=== PATIENT | male | born 1975 | race Caucasian/White ===

== ENCOUNTER 2019-07-14 16:48 | Emergency (ER) | payer OTHER ==
[2019-07-14] MEDS ORDERED: KETOROLAC TROMETHAMINE INJ 30 MG/ML VIAL IV ONE (17:43)
--- NOTE | 2019-07-14 18:11 | RAD ---
EXAM DESCRIPTION: XR Chest, 2 Views CLINICAL HISTORY: 44 years Male CP TECHNIQUE: Two views of the chest. COMPARISON: No prior exams provided for comparison. FINDINGS: The lungs are clear without focal consolidation, effusion, or pneumothorax. The cardiomediastinal silhouette and central pulmonary vasculature are normal. No acute osseous abnormalities. IMPRESSION: No acute cardiopulmonary abnormalities. Electronically signed by: Dot Arcos MD 07/14/2019 6:09 PM MANAGER SECONDARY
--- NOTE | 2019-07-14 18:13 | ED.PDOC ---
History of Present Illness - General Chief Complaint: General Stated Complaint: bilateral rib pain Time Seen by Provider: 07/14/19 17:40 Additional Information: Patient is a 44-year-old male with chief complaint of lower anterior chest wall tightness for the past 4-5 days. Patient indicates he feels like he has been punched in the chest. He rates his pain as moderate in intensity and is constant, worse with motion and with deep inspiration. Patient indicates he has had similar symptoms in the past with pneumonia. patient with an occasional dry cough. He denies history of blood clots. Patient denies any history of coronary artery disease or intrinsic lung disease. Patient indicates he works 60 hours a week and is under considerable stress and believes this is contributing to his symptoms as well. Patient is otherwise asymptomatic. - History of Present Illness Allergies/Adverse Reactions: Allergies NO KNOWN ALLERGY Allergy (Verified 07/14/19 17:45) Home Medications: Ambulatory Orders Ibuprofen [Motrin] 600 mg PO Q6H PRN #20 tab 07/14/19 Review of Systems - Review of Systems Constitutional: Denies: chills, fever EENTM: States: no symptoms reported Respiratory: States: cough, short of breath - slight. Denies: stridor, wheezing Cardiology: Denies: palpitations, syncope Gastrointestinal/Abdominal: States: no symptoms reported. Denies: abdominal pain, nausea, vomiting Genitourinary: States: no symptoms reported. Denies: dysuria Musculoskeletal: Denies: muscle pain Skin: Denies: rash Neurological: States: no symptoms reported All other Systems: Reviewed and Negative Past Medical History (General) - Patient Medical History Hx Stroke: No Hx Asthma: Yes Hx Congestive Heart Failure: No Hx Hypertension: Yes Hx Diabetes: No - Vaccination History Hx Influenza Vaccination: No Hx Pneumococcal Vaccination: No - Social History Hx Tobacco Use: No - E-cigs Hx Depression: Yes Family Medical History - Family History Father Family History: Unknown Living Status: Unknown Physical Exam - Physical Exam General Appearance: Alert, Comfortable, No apparent distress, Obese Ears, Nose, Throat: normal ENT inspection, normal pharynx Neck: non-tender, full range of motion, supple, normal inspection Respiratory: chest non-tender, lungs clear, normal breath sounds, no respiratory distress, no accessory muscle use Cardiovascular/Chest: normal peripheral pulses, regular rate, rhythm, no edema, no gallop, no JVD, no murmur Gastrointestinal/Abdominal: normal bowel sounds, non tender, soft Back Exam: normal inspection, no CVA tenderness Extremity: normal inspection Skin Exam: normal color, warm/dry Progress - Progress Progress: 07/14/19 18:15 differential diagnosis includes but is not limited to pneumonia, PE, pleurisy, ACS. 07/14/19 18:15 EKG read: NSR, rate 63 nl axis, nl QRS, nl ST segments, nl T waves. Negative STEMI. EKG read by Alejandro Smith MD. 07/14/19 19:38 Patient's workup is unremarkable including his chest x-ray and CT. There is no clinical concern for PE. Patient's pain is pleuritic/musculoskeletal in nature and I have very low concern for coronary artery disease. Patient is a low risk HEART score. Will DC with analgesics and patient to follow-up with his PCP. Vital signs stable, patient NAD and looks clinically well, and I believe is safe for discharge with outpatient follow-up. Follow-up instructions, discharge instructions and return to ED precautions discussed with patient. Patient voices understanding and willingness to comply with instructions. All laboratory and radiographic results have been discussed with the patient, and all questions answered. Patient is happy with plan. Departure - Departure Clinical Impression: Pleuritic chest pain Time of Disposition: 19:40 Disposition: Discharge to Home or Self Care Condition: Good Departure Forms: ED Discharge - Pt. Copy, Patient Portal Self Enrollment Instructions: Pleuritic Chest Pain (DC) Referrals: REED ACOSTA MD [Active Staff] - 1 Week Prescriptions: Ibuprofen [Motrin] 600 mg PO Q6H PRN #20 tab PRN Reason: Pain Home Medications: Ambulatory Orders Ibuprofen [Motrin] 600 mg PO Q6H PRN #20 tab 07/14/19
[2019-07-14 18:43] VITALS: O2SAT 95
--- NOTE | 2019-07-14 19:22 | CT ---
PROCEDURE: CT Angiography Chest With Intravenous Contrast CLINICAL INDICATION: The patient is 44 years old and is Male; CP, SOB, elevated DD TECHNIQUE: Axial computed tomographic angiography images of the chest with intravenous contrast. This CT exam was performed using one or more of the following dose reduction techniques: automated exposure control, adjustment of the mA and/or kV according to patient size, and/or use of iterative reconstruction technique. MIP reconstructed images were created and reviewed. DLP: 790 mGy*cm COMPARISON: Chest radiograph of the same day. FINDINGS: PULMONARY ARTERIES: Unremarkable. No pulmonary embolism. AORTA: No acute findings. No thoracic aortic aneurysm. LUNGS: No focal consolidation. PLEURAL SPACE: No pleural effusion or pneumothorax. HEART: The heart is normal in size. No pericardial effusion. No evidence of RV dysfunction. THYROID: Partially seen 1.3 cm left thyroid nodule. BONES/JOINTS: T9 vertebral body hemangioma. No acute fracture. No dislocation. SOFT TISSUES: Unremarkable. LYMPH NODES: Unremarkable. No enlarged lymph nodes. OTHER FINDINGS: Mild multilevel disease. IMPRESSION: 1. No pulmonary embolism. No acute intrathoracic abnormality. 2. Partially seen 1.3 cm left thyroid nodule. No follow-up imaging is recommended. Reference: J Am Damien Radiol. 2015 Aug;12(2): 143-50. 3. T9 vertebral body hemangioma. Electronically signed by: Elver Whittington DO 07/14/2019 7:20 PM INTERMEDIATE DESIGNER
[2019-07-14 19:51] VITALS: BP 166/96; TEMP 97.9
== END 2019-07-14 19:51 | disposition home or self-care (01) ==
LOC: ER 16:48
DX: R07.1 Chest pain on breathing (principal); F32.9 Major depressive disorder, single episode, unspecified; J45.909 Unspecified asthma, uncomplicated; I10 Essential (primary) hypertension; Z87.01 Personal history of pneumonia (recurrent)
CPT/HCPCS: 36415; 71046; 71275; 80053; 83605; 83880; 84484; 85025; 85379; 93005; J1885

== ENCOUNTER 2019-07-19 18:07 | Emergency (ER) | payer OTHER ==
[2019-07-19] MEDS ORDERED: KETOROLAC TROMETHAMINE INJ 60 MG/2 ML VIAL IM ONE (18:18)
[2019-07-19] MEDS ORDERED: predniSONE 20 MG TAB PO ONE (18:19)
--- NOTE | 2019-07-19 18:25 | ED.PDOC ---
History of Present Illness - General Time Seen by Provider: 07/19/19 18:18 - History of Present Illness Initial Comments: 44-year-old male with history of kidney stones, returns to the emergency room several days after visit for bilateral flank pain, diagnosed as pleurisy. He solares d a CT of his chest, which was negative, as well as reassuring laboratory studies. He was prescribed ibuprofen, has not taken it, because it doesn't work for him. No significant change in the symptoms over the last several days, presenting because he has not had improvement. Denies fever, productive cough. Allergies/Adverse Reactions: Allergies NO KNOWN ALLERGY Allergy (Verified 07/19/19 19:02) Home Medications: Ambulatory Orders Ibuprofen [Motrin] 600 mg PO Q6H PRN #20 tab 07/14/19 Prednisone 20 mg PO DAILY 5 Days #5 tab 07/19/19 Tramadol HCl [Ultram] 50 mg PO Q6H PRN #15 tab 07/19/19 Review of Systems - Review of Systems Review of Systems: 07/19/19 18:25 General: Denies generalized weakness, fever, arthralgia/myalgia HEENT: Denies sore throat, rhinorrhea Cardiovascular: Denies chest pain, palpitations Respiratory: has SOB related to discomfort, no prod cough Gastrointestinal: Denies abdominal pain, vomiting, diarrhea : Denies dysuria, frequency Musculoskeletal: Denies extremity pain, extremity swelling Integument: Denies rash, itching Neuro: Denies focal weakness or numbness Psych: Denies depression, hallucinations. Past Medical History (General) - Patient Medical History Hx Stroke: No Hx Asthma: Yes Hx Congestive Heart Failure: No Hx Hypertension: Yes Hx Diabetes: No - Vaccination History Hx Influenza Vaccination: No Hx Pneumococcal Vaccination: No - Social History Hx Tobacco Use: No - E-cigs Hx Depression: Yes Family Medical History - Family History Father Family History: Unknown Living Status: Unknown Physical Exam - Physical Exam Comments: General Appearance: Patient is awake and alert. Skin: Warm and dry. No diaphoresis. No rash or other lesions. Head: Normocephalic/atraumatic. Eyes: PERRL, lids, conjunctiva and sclera unremarkable. EOMI intact. ENT: No nasal discharge. Oropharynx. Without erythema, exudate, lesions. Moist mucous membranes. Neck: Supple. No LAD. No tenderness. No JVD noted. Respiratory: Normal rate and effort. Breath sounds clear bilaterally. Cardiovascular: Regular rate. Heart sounds normal. No murmur. GI: Abdomen soft, non-distended and non-tender. No rebound/guarding. Bowel sounds normal. Back: No tenderness Musculoskeletal: Extremities- Normal range of motion. No effusion, cyanosis, edema. Neurological: Alert. No facial palsy. Speech clear. Gag intact. No motor deficit, str symmetric. No sensory deficit. Progress - Progress Progress: 07/19/19 19:52 medical records reviewed, had normal CT scan and normal labs several days ago. Today, urinalysis is negative. Feels better after medications. VS, exam remain reassuring. Labs, imaging are without acute abnormality. I have discussed findings, diff dx, plan of care, need for follow-up, and reasons to return to the ED. Safety Stop (Diagnostic Time-Out): Tachycardia: No Diagnostic Studies: Reviewed Diagnostic Certainty: low Patient/family feels safe with discharge: Yes Departure - Departure Clinical Impression: Pleuritic chest pain Time of Disposition: 19:55 Disposition: Discharge to Home or Self Care Condition: Good Instructions: Pleuritic Chest Pain Diet: resume usual diet Activity: increase activity as tolerated Prescriptions: Prednisone 20 mg PO DAILY 5 Days #5 tab Tramadol HCl [Ultram] 50 mg PO Q6H PRN #15 tab PRN Reason: Pain Home Medications: Ambulatory Orders Ibuprofen [Motrin] 600 mg PO Q6H PRN #20 tab 07/14/19 Prednisone 20 mg PO DAILY 5 Days #5 tab 07/19/19 Tramadol HCl [Ultram] 50 mg PO Q6H PRN #15 tab 07/19/19
[2019-07-19] MEDS ORDERED: traMADol HCL 50 MG TAB PO ONE (18:27)
[2019-07-19 19:18] VITALS: TEMP 98.5
[2019-07-19 20:42] VITALS: O2SAT 95
[2019-07-19 20:43] VITALS: BP 152/82
== END 2019-07-19 20:42 | disposition home or self-care (01) ==
LOC: ER 18:07
DX: R07.1 Chest pain on breathing (principal); R10.9 Unspecified abdominal pain; F32.9 Major depressive disorder, single episode, unspecified; J45.909 Unspecified asthma, uncomplicated; I10 Essential (primary) hypertension; F17.290 Nicotine dependence, other tobacco product, uncomplicated
CPT/HCPCS: 81001; J1885; J7512

== ENCOUNTER → 2019-08-05 | Outpatient (CLI) | payer OTHER ==
--- NOTE | 2019-08-07 10:10 | US ---
EXAM DESCRIPTION: Abdomen,Complete: Ultrasound. CLINICAL HISTORY: 44 years MaleGENERALIZED ABDOMINAL PAIN COMPARISON: None Available. TECHNIQUE: Transabdominal scanning: grayscale and Doppler modes. FINDINGS: Gallbladder: Normal size with no intraluminal stones or sludge. Gallbladder wall thickness 3.2 mm with no fluid. Nontender with transducer pressure. Common bile duct: 4.8 mm normal caliber. Liver: Long axis right lobe 16.7 cm. Diffuse increased echogenicity with no focal lesions. Physiologic vascularity and normal caliber of the ducts. Smooth capsule with no ascites. Pancreas: Normal echogenicity and duct not seen.. Abdominal aorta: Normal caliber from the proximal segment to the distal bifurcation. IVC: visualized; normal caliber. Spleen normal echogenicity; long axis measurement is 11.2 cm. Right kidney: 12.2 cm Long axis and normal cortical thickness and echogenicity. Smooth capsule. No echogenic stones or hydronephrosis. 1.2 x 1.1 cm cyst. Left kidney: 11.4 cm long axis and cortical thickness 12 mm. Increased echogenicity of the cortex but less than that of the liver. Capsule is minimally lobulated. 1.3 x 1.2 cm cortical cyst. No echogenic stones or hydronephrosis. IMPRESSION: 1. Gallbladder wall thickness borderline increased with no fluid. No stones or sludge. Nontender with transducer pressure. Normal caliber common bile duct. 2. Liver borderline enlarged and steatosis. No focal lesions. Vascular structures and ducts are physiologic. Smooth capsule with no ascites. Pancreas is negative. 3. Normal ultrasound of the spleen. Normal caliber of the abdominal aorta and IVC. 4. Bilateral renal cysts. Minimal thinning of the left renal cortex and minimal lobularity of the capsule. Echogenicity less than that of the liver. Electronically signed by: Reggie Franklin MD 08/07/2019 10:09 AM HOSPICE TEAM LEAD
== END ==
LOC: US 14:36
PROVIDERS: ATTEND Nurse Practitioner Family
DX: K82.9 Disease of gallbladder, unspecified (principal); K76.0 Fatty (change of) liver, not elsewhere classified

== ENCOUNTER → 2020-03-25 | Outpatient (CLI) | payer OTHER ==
--- NOTE | 2020-03-29 07:50 | RAD ---
EXAM DESCRIPTION: Abdomen Series CLINICAL HISTORY: 44 years Male, RT LOWER ABD TENDERNESS COMPARISON: None. FINDINGS: Heart size is normal. Normal pulmonary vascularity. Lungs are clear. No free air under the diaphragm. Upright and supine x-ray views of the abdomen show unremarkable bowel gas pattern. No air-fluid levels to suggest obstruction. No small bowel dilatation. Moderate amount of fecal material in the right colon and transverse colon. Calcifications in the pelvis are likely vascular. If a ureteral calculus is suspected then CT could be performed. IMPRESSION: Moderate fecal burden. Otherwise negative. Electronically signed by: Pipe Brooks MD 03/29/2020 7:48 AM CDT
== END ==
LOC: LAB.O 12:42
PROVIDERS: ATTEND Nurse Practitioner Family
DX: K59.00 Constipation, unspecified (principal)

== ENCOUNTER → 2020-08-09 | Outpatient (CLI) | payer OTHER | LOC: YCFC.O 15:11 | PROVIDERS: ATTEND Family Medicine | DX: Z20.822 Contact with and (suspected) exposure to COVID-19 (principal) ==

== ENCOUNTER 2020-09-02 20:51 | Inpatient (IN) | payer OTHER ==
[2020-09-02] MEDS ORDERED: SODIUM CHLORIDE 0.9% 1000ML 1,000 ML IVS ONE (21:13)
[2020-09-02] MEDS ORDERED: ONDANSETRON INJ 4 MG/2 ML VIAL IV ONE (21:13)
[2020-09-02] MEDS ORDERED: HYDROmorphone HCL INJ 2 MG/ML VIAL IV ONE (21:13)
[2020-09-02] MEDS ORDERED: PANTOPRAZOLE SODIUM IV 40 MG VIAL IV ONE (21:13)
[2020-09-02] MEDS ORDERED: CEFEPIME 2 GM in SODIUM CHL 0.9% 100ML MINI-BAG 100 ML IVPB ONE (21:14)
--- NOTE | 2020-09-02 21:18 | ED.PDOC ---
History of Present Illness - General Time Seen by Provider: 09/02/20 21:06 Additional Information: Patient is a 45-year-old male who presents to the ED with chief complaint of abdominal pain. Patient describes diffuse abdominal cramping and burning. His symptoms began yesterday with a constant need to burp, and burping up "rotten eggs" burps. Patient indicates he has a history of esophagitis type symptoms and GERD but feels this is different. He has had poor p.o. intake for the past 24 hours and feels nauseated and dehydrated. Patient denies history of abdominal surgeries. Patient denies fever, chills, chest pain, shortness of breath, cough. Review of Systems - Review of Systems Constitutional: States: weakness. Denies: chills, fever EENTM: States: no symptoms reported Respiratory: States: no symptoms reported. Denies: cough, short of breath Cardiology: States: no symptoms reported. Denies: chest pain, palpitations Gastrointestinal/Abdominal: States: see HPI, abdominal pain, nausea, vomiting Musculoskeletal: States: no symptoms reported Skin: States: no symptoms reported. Denies: rash Neurological: States: no symptoms reported All other Systems: Reviewed and Negative Past Medical History (General) - Patient Medical History Hx Stroke: No Hx Asthma: Yes Hx Congestive Heart Failure: No Hx Hypertension: Yes Hx Diabetes: No Hx Cancer: No - Vaccination History Hx Influenza Vaccination: No Hx Pneumococcal Vaccination: No - Social History Hx Tobacco Use: No - E-cigs Hx Depression: Yes Family Medical History - Family History Father Family History: Unknown Living Status: Unknown Physical Exam - Physical Exam General Appearance: Obvious distress, Obese, Well Developed, Other - Patient is curled in a position on the bed in obvious discomfort. Eyes, Ears, Nose, Throat Exam: normal ENT inspection Neck: full range of motion, supple, normal inspection Respiratory: chest non-tender, lungs clear, normal breath sounds, no respiratory distress, no accessory muscle use Cardiovascular/Chest: normal peripheral pulses, regular rate, rhythm, no edema, no gallop, no JVD, no murmur Gastrointestinal/Abdominal: other - Abdomen with diffuse moderate tenderness to palpation with guarding. Back Exam: normal inspection, no CVA tenderness Extremity: normal range of motion, non-tender, normal inspection Neurologic: tinner helper II-XII nml as tested, no motor/sensory deficits, alert, normal mood/affect, oriented x 3 Skin Exam: normal color, warm/dry Progress - Progress Progress: 09/02/20 21:22 Differential diagnosis includes but is not limited to sepsis, mesenteric ischemia, colitis, PUD. EKG: Normal sinus rhythm, rate 87, normal axis, normal QRS, nonspecific ST and T wave changes, negative STEMI. 09/02/20 23:03 Patient seen and reexamined and he is feeling significantly better at this time. His pain is now 6/10 and he is no longer in the position. Patient's WBC is elevated at 15.8 but his lactate is normal. Patient's renal function is also normal. Patient CT suggests a small bowel obstruction with a transition point I discussed patient's case with Dr. Rodríguez, general surgeon, who will consult and requests hospitalist admission. I discussed case with Severo Chavez, hospitalist will admit. Will redose with analgesics, make patient n.p.o., and place an NG tube. Departure - Departure Clinical Impression: Small bowel obstruction Time of Disposition: 22:52 Disposition: Admit Patient Home Medications: Ambulatory Orders Ibuprofen [Motrin] 600 mg PO Q6H PRN #20 tab 07/14/19 Prednisone 20 mg PO DAILY 5 Days #5 tab 07/19/19 Tramadol HCl [Ultram] 50 mg PO Q6H PRN #15 tab 07/19/19 Decision To Admit - Decistion To Admit Decision to Admit Reason: Admit from ER Decision to Admit Date: 09/02/20 Decision to Admit Time: 22:52
--- NOTE | 2020-09-02 22:48 | CT ---
EXAM: Abdomen/Pelvis w/Contrast CLINICAL INDICATION: 45-year-old male with abdominal pain. COMPARISON: None. EXAMINATION: CT of the abdomen and pelvis was performed following intravenous administration of contrast. Oral contrast was not administered. Multiplanar reformatted images were provided. This exam was performed according to our departmental dose optimization program which includes use of automated exposure control, adjustment of the mA and/or kV according to patient size and/or use of iterative reconstruction technique. FINDINGS: Chest: Evaluation through the lung bases reveals no focal opacity, pleural effusion or pneumothorax. Heart size is within normal limits. No pericardial effusion. Abdomen and pelvis: The liver, gallbladder, pancreas, spleen, bilateral kidneys and bilateral adrenal glands are within normal limits. Scattered foci of subcentimeter hypoattenuation throughout the bilateral kidneys compatible raising the possibility of renal cysts, however too small to accurately characterize. Punctate focus of calcification within the lower pole of the LEFT kidney compatible with nonobstructing calculus. The vessels are patent and normal in caliber. No abdominopelvic lymph nodes are noted to be pathologically enlarged by CT measurement criteria. Dilated loops of small bowel with small bowel wall thickening and air-fluid level and liquid fecal content, organized in appearance compatible with small bowel obstruction. Trace distal fluid is present at the level of the pelvis. Decompressed small bowel is present distally with possible zone of transition at the level of the RIGHT hemiabdomen. Liquid fecal content present throughout the large bowel which is partially decompressed. The large bowel is otherwise within normal limits without abnormal bowel wall thickness or bowel dilation. No free air. No organizing abdominopelvic fluid collections. The appendix is within normal limits. The osseous structures are within normal limits. Suspected hemangioma within the T9 vertebral level. IMPRESSION: 1. Dilated loops of small bowel with small bowel wall thickening, air-fluid level and free fluid within the dependent pelvis with distal small bowel loop decompression and suspected transition site within the RIGHT hemipelvis compatible with small bowel obstruction. Electronically signed by: Lea Rodriguez MD 09/02/2020 10:47 PM TAX COLLECTION COORDINATOR
[2020-09-02] MEDS ORDERED: MORPHINE SULFATE INJ 10 MG/ML VIAL IV ONE (23:02)
--- NOTE | 2020-09-03 00:03 | HP ---
SUPERVISING PHYSICIAN: Brandon Smith MD CHIEF COMPLAINT: Severe abdominal pain. HISTORY OF PRESENT ILLNESS: Mr. Moran is a 45 year-old male patient with a history of hypertension and depression and gastroesophageal reflux disease who presents to the Emergency Room complaining of severe abdominal pain. He noted that the pain was diffuse, crampy and burning in nature. He endorses that earlier in the week he started having some gas he said smells like rotten eggs. , he started having some diarrhea and just not feeling well. Today, he notes his pain has severely worsened and he is unable to get any comfort, therefore, he presented to the Emergency Room for evaluation. CT of the abdomen showed findings consistent with a small bowel obstruction. An NG tube was placed. Laboratory studies showed a white count of 15,800 with a left shift. Chemistries were fairly unremarkable. Liver was normal. Bilirubin was 1.4, lipase 22. Electrolytes were showing normal with creatinine of 1.24. He was started on antibiotic coverage with Cefepime. Dr. Camejo, general surgeon, was called and recommended the patient be admitted for treatment of a small bowel obstruction. He was admitted in stable condition. PAST MEDICAL HISTORY: 1. Asthma. 2. Depression/ 3. Hypertension. CURRENT MEDICATIONS: 1. No abdominal surgeries. 2. Two boxer fractures repaired. CURRENT MEDICATIONS: Awaiting updated list of medications in the electronic medical records. ALLERGIES: No known drug allergies. FAMILY HISTORY: Both mother and father history is unknown. SOCIAL HISTORY: The patient lives in [place]. He works at [employer]. He is and has 5 children. No history of alcohol usage, smoked up to 2011 when he stopped and was using e-cigarettes and quit totally in 2018. He does not use illicit drugs. REVIEW OF SYSTEMS: CONSTITUTIONAL: Denies fever, chills, does have generalized weakness. No unintentional weight loss. HEENT: He denies any headache, visual changes, sore throat, nasal congestion, earaches. RESPIRATORY: Denies coughing or shortness of breath. CARDIOVASCULAR: Denies chest pain, palpitations, syncopal episodes. ABDOMEN: As noted in history of present illness. Severe abdominal pain with nausea and vomiting and associated diarrhea. MUSCULOSKELETAL: Denies arthralgias or joint swelling. SKIN: Denies unexplained changes, lesions, rashes or moles. NEUROLOGICAL: Denies ataxia, seizures, syncopal episodes or other focal neuro or motor deficits. HEMATOLOGIC: Denies unexplained bleeding, bruising or transfusion reactions. PHYSICAL EXAMINATION: VITAL SIGNS: Temperature 98.3, pulse 79, blood pressure 169/80, respirations 18, oxygen saturation 97% on room air. GENERAL: The patient looks to be fairly comfortable. He has an NG tube placed in the right nare for suction. He is alert and does not look to in any acute distress at time of exam. HEENT: Tympanic membranes clear bilaterally. Oropharynx is pink and moist without lesions. Nares: NG tube in place for suction.w. NECK: Supple, non-tender, full range of motion. No jugular venous distention. CHEST Lung sounds clear to auscultation bilaterally without rhonchi, rales, or wheezes. HEART: Regular rate and rhythm without appreciable murmurs, rubs, or gallops. ABDOMEN: Obese, soft with diffuse tenderness on palpation. No point tenderness, no peritoneal signs. Bowel sounds are active. RECTAL: Exam deferred. EXTREMITIES: Without cyanosis, clubbing, or edema. NEUROLOGIC: He is alert and oriented x 3. Cranial nerves II through XII are grossly intact. SKIN: Warm, pink and dry. LABORATORY: On admission showed CBC with white count of 15,800, hemoglobin 18.3, hematocrit 53.9. Platelet count 306,000. Differential does show a left shift. Chemistries: electrolytes within normal limits. Creatinine 1.24, calcium 8.3, total bilirubin 1.4. Liver functions all within normal limits. Lipase normal at 22. MICROBIOLOGY: Nasal swab for Covid was negative. Blood cultures pending. RADIOLOGY: Abdominal/pelvic CT per radiology interpretation shows dilated loops of small bowel with small bowel wall thickening, air-fluid levels and free fluid within the dependent pelvis with distal bowel loop, suspect transition site within the right hemipelvis compatible with small bowel obstruction. IMPRESSION: 1. Abdominal pains with concerns for a small bowel obstruction versus ileus. 2. History of asthma. 3. History of depression. 4. History of hypertension. PLAN: Mr. Moran is going to be admitted for surgical consultation with Dr. Camejo. He is n.p.o.. He will remain with the NG tube to low suction. Will provide him with pain management with morphine if needed, antiemetics with Zofran or Phenergan as needed. He will have IV Protonix for gastric protection. Will put him on IV fluids with D5 half normal saline at 20 of potassium to run at 125 an hour. Given he did have a single white count and severe abdominal pain, we will cover him empirically with antibiotics with Zosyn for the first [address] Camejo's consultation. I expect his length of stay to be at least 2 to 3 days. Until we can transition patient to outpatient management, we will continue to monitor and treat as needed. #[id number] [facility]
[2020-09-03] MEDS ORDERED: SODIUM CHLORIDE 0.9% (FLUSH) 10 ML SYG IV PRN (00:49)
[2020-09-03] MEDS ORDERED: IV SET AND CAP CHANGE INJ INJ SCH (01:00)
[2020-09-03] MEDS ORDERED: PIPERACILLIN/TAZOBACTAM 3.375 GM VIAL IVPB ONE ×4 (01:28→18:53)
[2020-09-03] MEDS ORDERED: KCL 20MEQ/D5 1/2NS 1,000 ML IVS ONE ×4 (01:28→18:53)
[2020-09-03] MEDS ORDERED: SODIUM CHL 0.9% 100ML MINI-BAG 100 ML IVPB ONE ×2 (01:29→18:53)
[2020-09-03] MEDS: PIPERACILLIN/TAZOBACTAM 3.375 GM in SODIUM CHLORIDE 0.9% 100ML 100 ML IVPB SCH ×4 (01:35→19:21)
[2020-09-03] MEDS: KCL 20MEQ/D5 1/2NS 1,000 ML IVS PRN ×4 (01:35→21:47)
[2020-09-03] MEDS ORDERED: ONDANSETRON INJ 4 MG/2 ML VIAL ONE ×2 (01:47→07:18)
[2020-09-03] MEDS: ONDANSETRON INJ 4 MG/2 ML VIAL IV PRN ×2 (01:58→07:37)
[2020-09-03] MEDS ORDERED: MORPHINE SULFATE INJ 10 MG/ML VIAL ONE ×3 (07:17→18:52)
[2020-09-03] MEDS ORDERED: SODIUM CHLORIDE 0.9% 100ML 100 ML IVPB ONE ×2 (07:18→14:29)
[2020-09-03] MEDS: MORPHINE SULFATE INJ 10 MG/ML VIAL IV PRN ×3 (07:37→21:57)
[2020-09-03] MEDS ORDERED: KETOROLAC TROMETHAMINE INJ 30 MG/ML VIAL IV ONE (10:15)
--- NOTE | 2020-09-03 11:02 | RAD ---
EXAM: X-RAY ABDOMEN, TWO VIEWS HISTORY: SBO. TECHNIQUE: AP supine and upright views of the abdomen. COMPARISON: CT of the abdomen and pelvis from 09/02/2020. FINDINGS: Dilated central small bowel loops measure up to 4 cm in diameter, similar to the recent CT. Normal volume of air within portions of the colon. Contrast is present within the urinary bladder related to a recent contrast procedure. No intra-abdominal free air. IMPRESSION: Persistent small bowel obstruction or ileus. Electronically signed by: Raz Crandall MD 09/03/2020 11:01 AM [facility]
[2020-09-03] MEDS ORDERED: KETOROLAC TROMETHAMINE INJ 30 MG/ML VIAL ONE (11:08)
--- NOTE | 2020-09-03 12:00 | CONS ---
DATE OF CONSULTATION: 09/03/20 REASON FOR CONSULTATION: Small bowel obstruction. HISTORY OF PRESENT ILLNESS: The patient is a 45 year-old male who came to the Emergency Department last night with severe abdominal pain and vomiting x2, nonbloody. He said he was drinking water which caused it, has had no interruption of bowel habits lately. He has a history of intermittent abdominal pains, particularly cramping, a stabbing type cramping that is intermittent. He has had a couple of upper endoscopies and found to have a hiatal hernia and gastritis but this pain was different. He did have a colonoscopy years ago, uneventfully. He denies any history of abdominal surgery and no known intraabdominal infection but he has had intermittent abdominal pains and cramping. PAST MEDICAL HISTORY: 1. Asthma since a child. 2. Gastroesophageal reflux disease 3. Hypertension. CURRENT MEDICATIONS: As per above. ALLERGIES: None. SOCIAL HISTORY: He did admit to a history of methamphetamine use, also, inhaled medications and not rinsing his mouth, cough drops, poor diet, etc. He has complete dentures. He denies any current drug use. REVIEW OF SYSTEMS: HEENT: He denies any headache, no visual changes. No sore throat, cough, wheezing, no chest pain or palpitations. No nausea or vomiting. Now he does better, been good last night. He said NG tube put out 700 mL. ABDOMEN: Still sore but less than before. It is intermittent and crampy. Has had no black or bloody stools, no diarrhea. No history of bloody stools. GENITOURINARY: No complaints. EXTREMITIES: No complaint. PHYSICAL EXAMINATION: VITAL SIGNS: He is afebrile. T-max 98, heart rate in the 70s. Blood pressure normal. GENERAL: He is conscious, alert and oriented and in no distress. HEENT: Normocephalic and atraumatic. Pupils are equal and reactive. Sclera icteric. Oral mucosa is tacky. No dentures in now. NECK: Supple. CHEST Clear to auscultation bilaterally. HEART: Regular rate and rhythm. ABDOMEN: Obese, mildly distended. Slightly tender, no true rebound or guarding. No evidence of diffuse peritonitis. No CVA tenderness. EXTREMITIES: No cyanosis, clubbing, or edema. LABORATORY: White blood cell count this morning is 13 from 16. Hematocrit 50, platelet count 260,000. No bandemia. BNP is normal. Glucose of 142, lactic acid yesterday was 1.2. RADIOLOGY: CT scan, I saw the report and viewed it for myself. There is evidence of a distal transition point in the bowel with some fluid in the pelvis. Comments on some bowel wall thickening, this is not severe and I do not see any evidence of internal hernia or closed loop. IMPRESSION: 1. Small bowel obstruction with no evidence of peritonitis or ischemic bowel. PLAN: I discussed this with the patient. He has not had abdominal surgery before so there is concern of what is causing this. It could be natural adhesion inside, I do not see a mass. Important is that I do not see any evidence of ischemic bowel at this time and we can continue treating him with NG suction and if he fails to improve or suddenly gets worse, we will recommend surgery, likely beginning laparoscopic if visualization is good, we can take care of it that way. He understands the plan and right now we will continue observation and NG tube, he can have ice chips and water. #[id number] [facility]
[2020-09-03] MEDS ORDERED: ALBUTEROL SULFATE 2.5 MG/3 ML VIAL NEB ONE ×3 (12:27→20:09)
[2020-09-03] MEDS: ALBUTEROL SULFATE 2.5 MG/3 ML VIAL NEB SCH ×3 (12:30→21:25)
[2020-09-03] MEDS ORDERED: SODIUM CHLORIDE 0.9% 1000ML 1,000 ML IVS ONE (14:20)
[2020-09-03] MEDS ORDERED: SODIUM CHLORIDE 0.9% 1000ML 1,000 ML ONE (14:29)
[2020-09-04] MEDS ORDERED: PIPERACILLIN/TAZOBACTAM 3.375 GM VIAL IVPB ONE ×3 (00:30→13:40)
[2020-09-04] MEDS ORDERED: KCL 20MEQ/D5 1/2NS 1,000 ML IVS ONE ×2 (00:30→13:41)
[2020-09-04] MEDS ORDERED: MORPHINE SULFATE INJ 10 MG/ML VIAL ONE ×3 (00:30→10:08)
[2020-09-04] MEDS ORDERED: SODIUM CHL 0.9% 100ML MINI-BAG 100 ML IVPB ONE (00:31)
[2020-09-04] MEDS: PIPERACILLIN/TAZOBACTAM 3.375 GM in SODIUM CHLORIDE 0.9% 100ML 100 ML IVPB SCH ×3 (01:15→15:06)
[2020-09-04] MEDS: MORPHINE SULFATE INJ 10 MG/ML VIAL IV PRN ×3 (01:15→10:11)
[2020-09-04] MEDS: KCL 20MEQ/D5 1/2NS 1,000 ML IVS PRN ×2 (06:15→15:06)
[2020-09-04] MEDS: ALBUTEROL SULFATE 2.5 MG/3 ML VIAL NEB SCH ×2 (08:20→13:05)
[2020-09-04] MEDS ORDERED: ALBUTEROL SULFATE 2.5 MG/3 ML VIAL NEB ONE ×2 (08:24→13:01)
[2020-09-04] MEDS ORDERED: SODIUM CHLORIDE 0.9% 100ML 100 ML IVPB ONE ×2 (08:30→13:40)
--- NOTE | 2020-09-04 09:01 | RAD ---
EXAMINATION: Abdomen Flat Upright CLINICAL HISTORY: SBO COMPARISON: September 03, 2020 FINDINGS: There is diffuse gaseous distention of multiple loops of bowel within the abdomen. This appears to have improved slightly since the prior examination. There is no evidence for free air. There are no abnormal calcifications seen within the abdomen or pelvis. There are no acute bony abnormalities. IMPRESSION: Improving changes of ileus versus small bowel obstruction Electronically signed by: Max Larose MD 09/04/2020 8:59 AM [facility]
[2020-09-04 13:32] VITALS: O2SAT 94
[2020-09-04] MEDS ORDERED: TAMSULOSIN 0.4 MG CAP PO SCH (14:30)
[2020-09-04] MEDS ORDERED: TAMSULOSIN 0.4 MG CAP ONE (15:01)
[2020-09-04 15:56] VITALS: BP 145/79; TEMP 99.5
--- NOTE | 2020-09-11 14:32 | DS ---
SUPERVISING PHYSICIAN: Brandon Smith MD DATE: 09/04/20 SUBJECTIVE: The patient is sitting up in bed. His eyes are closed, but he does speak when spoken to. He complains of generalized abdominal pain and he also had difficulty voiding. He has urgency to void, but it takes him a while to clear his bladder. He said he has had this ongoing for some time. He is not sure if he has had any prostate problems. OBJECTIVE: VITAL SIGNS: Temperature 97.5, heart rate 100, blood pressure 162/98, respiratory rate 18, O2 saturation 95% on room air. RESPIRATORY: Essentially clear to auscultation bilaterally. CARDIAC: Regular rate and rhythm. GASTROINTESTINAL: Abdomen is rounded, slightly firm, but diffuse tender. Bowel sounds are positive. NEUROLOGIC: Awake, alert and oriented times three. LABORATORY: WBCs 11,300, hemoglobin 14.5, hematocrit 44.5. He has a left shift on differential. Electrolytes are basically within normal limits with the exception of calcium slightly low at 8. Bilirubin 1.5. Serum total protein is 6.3. MICROBIOLOGY: Preliminary blood cultures show no growth after 24 hours. RADIOLOGY: Abdominal x-ray show improving changes of ileus versus small bowel obstruction. ASSESSMENT: 1. Abdominal pains with concerns for a small bowel obstruction versus ileus. 2. History of asthma. 3. History of depression. 4. History of hypertension. 5. Urinary retention. PLAN: We will continue present supportive care. I have ordered lab and an abdominal x-ray for in the morning. I have also ordered some Flomax. On discharge, he will need a full workup. He did pull his NG tube out, so we will replace that. All other abdominal issues will be per Dr. Camejo. ADDENDUM: Shortly after I examined patient, he decided to leave the hospital against medical advice. He was cautioned that his present condition could be life threatening, but he wanted to leave and signed appropriate paperwork. #[id number] [facility]
== END 2020-09-04 15:00 | disposition left against medical advice (07) | DRG 390 ==
LOC: ER 20:51 → MS 09-03 00:02 → OBSVTOIN 09-03 00:02
PROVIDERS: ADMIT Nurse Practitioner Family; ATTEND Nurse Practitioner Family
PROC: BW211ZZ Computerized Tomography (CT Scan) of Abdomen and Pelvis using Low Osmolar Contrast (ICD-10-PCS; principal; 2020-09-02)
PROC: 0D9670Z Drainage of Stomach with Drainage Device, Via Natural or Artificial Opening (ICD-10-PCS; 2020-09-03)
DX: K56.609 Unspecified intestinal obstruction, unspecified as to partial versus complete obstruction (principal); K21.9 Gastro-esophageal reflux disease without esophagitis; I10 Essential (primary) hypertension; J45.909 Unspecified asthma, uncomplicated; F32.9 Major depressive disorder, single episode, unspecified; R33.9 Retention of urine, unspecified